=== PATIENT | female | born 1960 | race Caucasian/White ===

== ENCOUNTER 2021-12-30 12:55 | Observation (INO) | payer SELFPAY ==
[2021-12-30] VITALS (7 sets, daily range): BP systolic 125–153; BP diastolic 75–98; PULSE 67–83; RESP 12–18; TEMP 36.1–36.8; O2SAT 95–100; BMI 31.1
--- NOTE | 2021-12-30 13:23 | XRR_ITS ---
PROCEDURE INFORMATION: Exam: XR Chest Exam date and time: 12/30/2021 1:50 PM Age: 61 years old Clinical indication: Pain; Chest pressure; Additional info: Chest pain TECHNIQUE: Imaging protocol: XR of the chest. Views: 1 view. COMPARISON: No relevant prior studies available. FINDINGS: Lungs: Unremarkable. No consolidation. Pleural spaces: Unremarkable. No pleural effusion. No pneumothorax. Heart/Mediastinum: Unremarkable. No cardiomegaly. Bones/joints: Unremarkable. XR/XR chest 1V portable [id number] IMPRESSION: No acute findings.
--- NOTE | 2021-12-30 13:24 | ECG_ITS ---
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 Measurements Intervals [place] Rate: 72 P: 40 TN: 164 QRS: -8 QRSD: 91 T: 45 QT: 387 QTc: 425 Interpretive Statements SINUS RHYTHM No previous ECG available for comparison Electronically Signed On 12-30-2021 14:59:48 CDT by Estela Mcnulty M.D. [email or web address]
--- NOTE | 2021-12-30 13:33 | CTR_ITS ---
PROCEDURE INFORMATION: Exam: CT Angiography Head With Contrast, Arteriography Exam date and time: 12/30/2021 2:45 PM Age: 61 years old Clinical indication: Dizziness and giddiness; Additional info: Vertigo TECHNIQUE: Imaging protocol: Computed tomography angiography of the head with contrast. Exam focused on the arteries. 3D rendering (Not supervised by radiologist): MIP and/or 3D reconstructed images were created by the technologist. Radiation optimization: All CT scans at this facility use at least one of these dose optimization techniques: automated exposure control; mA and/or kV adjustment per patient size (includes targeted exams where dose is matched to clinical indication); or iterative reconstruction. Contrast material: OMNI 350; Contrast volume: 95 ml; Contrast route: INTRAVENOUS (IV); COMPARISON: 1. CT head wo con* [id number] 12/30/2021 2:43 PM 2. CR (CHEST, ) 12/30/2021 1:50 PM RADIATION DOSE METRICS: Total DLP (mGy-cm): 1881.22 FINDINGS: ANTERIOR CIRCULATION: Right internal carotid artery: Unremarkable. Intracranial segment is patent with no significant stenosis. No aneurysm. Right middle cerebral artery: Unremarkable. No occlusion or significant stenosis. No aneurysm. Right anterior cerebral artery: Unremarkable. No occlusion or significant stenosis. No aneurysm. Left internal carotid artery: Unremarkable. Intracranial segment is patent with no significant stenosis. No aneurysm. Left middle cerebral artery: Unremarkable. No occlusion or significant stenosis. No aneurysm. Left anterior cerebral artery: Unremarkable. No occlusion or significant stenosis. No aneurysm. POSTERIOR CIRCULATION: Right vertebral artery: Unremarkable. No occlusion or significant stenosis. No aneurysm. Left vertebral artery: Unremarkable. No occlusion or significant stenosis. No aneurysm. Basilar artery: Unremarkable. No occlusion or significant stenosis. No aneurysm. Right posterior cerebral artery: Unremarkable. No occlusion or significant stenosis. No aneurysm. Left posterior cerebral artery: Unremarkable. No occlusion or significant stenosis. No aneurysm. Brain: No definite mass, mass effect, or midline shift. Cerebral ventricles: No ventriculomegaly. Bones/joints: Unremarkable. No acute fracture. Soft tissues: Unremarkable. PROCEDURE INFORMATION: Exam: CT Angiography Neck With Contrast Exam date and time: 12/30/2021 2:45 PM Age: 61 years old Clinical indication: Dizziness and giddiness; Additional info: Vertigo TECHNIQUE: Imaging protocol: Computed tomography angiography of the neck with contrast. 3D rendering (Not supervised by radiologist): MIP and/or 3D reconstructed images were created by the technologist. Radiation optimization: All CT scans at this facility use at least one of these dose optimization techniques: automated exposure control; mA and/or kV adjustment per patient size (includes targeted exams where dose is matched to clinical indication); or iterative reconstruction. Contrast material: OMNI 350; Contrast volume: 95 ml; Contrast route: INTRAVENOUS (IV); COMPARISON: 1. CT head wo con* [id number] 12/30/2021 2:43 PM 2. CR (CHEST, ) 12/30/2021 1:50 PM RADIATION DOSE METRICS: Total DLP (mGy-cm): 1881.22 FINDINGS: Right common carotid artery: No stenosis. No dissection or occlusion. Right internal carotid artery: No stenosis of the extracranial segment. No dissection or occlusion. Right external carotid artery: No occlusion or stenosis of the origin. Left common carotid artery: No stenosis. No dissection or occlusion. Left internal carotid artery: No stenosis of the extracranial segment. No dissection or occlusion. Left external carotid artery: No occlusion or stenosis of the origin. Right vertebral artery: No stenosis. No dissection or occlusion. Left vertebral artery: No stenosis. No dissection or occlusion. Soft tissues: Normal. No significant soft tissue swelling. Bones/joints: No acute fracture. CT/CT angio headneck* [id number] IMPRESSION: No large vessel stenosis or occlusion. IMPRESSION: No stenosis or occlusion. REFERENCES: NASCET CRITERIA. The degree of internal carotid artery stenosis is based on NASCET criteria. Normal is no stenosis. Mild is less than 50% stenosis. Moderate is 50-69% stenosis. Severe is 70% to 99% stenosis. Total occlusion is no detectable patent lumen.
--- NOTE | 2021-12-30 13:33 | CTR_ITS ---
PROCEDURE INFORMATION: Exam: CT Head Without Contrast Exam date and time: 12/30/2021 2:43 PM Age: 61 years old Clinical indication: Dizziness; Additional info: Vertigo TECHNIQUE: Imaging protocol: Computed tomography of the head without contrast. Radiation optimization: All CT scans at this facility use at least one of these dose optimization techniques: automated exposure control; mA and/or kV adjustment per patient size (includes targeted exams where dose is matched to clinical indication); or iterative reconstruction. COMPARISON: No relevant prior studies available. RADIATION DOSE METRICS: Total DLP (mGy-cm): 831.39 FINDINGS: Brain: Normal. No hemorrhage. Unremarkable white matter. No mass effect. Cerebral ventricles: No ventriculomegaly. Paranasal sinuses: Visualized sinuses are unremarkable. No fluid levels. Mastoid air cells: Visualized mastoid air cells are well aerated. Bones/joints: Unremarkable. No acute fracture. Soft tissues: Unremarkable. CT/CT head wo con* [id number] IMPRESSION: No acute intracranial abnormality.
--- NOTE | 2021-12-30 13:35 | W.ED.GENADLT ---
HPI - General Adult General: Chief complaint: Dizziness Stated complaint: dizziness/nausea/pain in left side of back Time Seen by Provider: 12/30/21 13:20 History of Present Illness: Patient is a 61-year-old female with a history of hypertension, hyperlipidemia who presents emergency room with new onset of vertigo since 5 AM this morning with 2 episodes of chest pain. Patient tells me that she woke up around 5 AM this morning has had since then has been having significant vertigo with nausea and vomiting. Patient denies any prior history of vertigo before. Patient denies any fever or chills, ear pain, tinnitus, or ear drainage. Patient denies any focal neurological weakness with the episodes of vertigo. Patient says that she still has persistent persistent vertigo that is worse with positional changes. Patient also reports 2 episodes of chest pain radiating from right to the left. Each episode of chest pain last for 5 minutes and is burning sensation that is present whenever she is vomiting. He denies any chest pain outside of vomiting earlier today. Patient denies any exertional chest pain, pleuritic chest pain, sharp chest pain with radiation to the back. Patient denies any lower extremity swelling. Denies any pressure-like chest pain. Onset: 5am Duration:ongoing Location:home Severity:severe Associated symptoms: Reports nausea and vomiting; Deny chest pain, dyspnea, rash or palpitations Review of Systems Const: Denies: fever(s) or chills Eyes: Denies: change in vision ENMT: Denies: mouth pain Card: Denies: chest pain or palpitations Resp: Denies: dyspnea or non-productive cough GI: Reports: nausea and vomiting; Denies: abdominal pain or diarrhea : Denies: dysuria Musc: Denies: extremity pain Skin/Breast: Denies: rash or new lesions Neuro: Reports: other (+vertigo); Denies: weakness in extremities Psych: Reports: other (Normal mood) Benedict/Lymph: Denies: easy bruising PFSH ED PFSH: Medical History Hyperlipidemia Hypertension Surgical History S/P bunionectomy Family History Father CAD (coronary artery disease) Brother CAD (coronary artery disease) Mother Stroke Social History Smoking and tobacco status: never smoked Alcohol intake: never Substance/Drug Use: never Household members: spouse Marital status: Current occupational status: employed Physical Exam Const: COMMON NORMALS: alert HENMT: COMMON NORMALS: atraumatic HEAD & SCALP: atraumatic MOUTH: moist mucous membranes not abnormal Eye: COMMON NORMALS: EOMs intact bilaterally and conjunctivae normal CONJUNCTIVA: Yes conjunctivae normal Neck/C-Spine: COMMON NORMALS: full ROM and supple Resp: COMMON NORMALS: normal respiratory effort and clear to auscultation bilaterally AUSCULTATION: clear to auscultation bilaterally Cardio: COMMON NORMALS: regular rate RATE: regular rate GI: COMMON NORMALS: Soft to palpation and non-tender PALPATION: Yes Soft to palpation Extremity: COMMON NORMALS: full ROM Neuro: SENSORIUM/ORIENTATION: Yes alert MOTOR EXAM: No Abnormal motor strength present and Other motor observations present (no focal motor deficits) OTHER: Mental status? Awake, alert, and oriented to self, year, month, location, and situation.? Following simple axial and appendicular commands.? Has appropriate fund of knowledge, comprehension, and insight.? Able to recall and understands pertinent aspects of medical history and current treatment status.? ? Language? Speech is fluent without word-finding difficulties.? 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 ? Cranial nerves? 2,3,4,6: PERRL, EOMI with no nystagmus. 5: Intact sensation to light touch, symmetric? 7: Smile symmetrical, no facial droop.? 8: Hearing grossly intact.? 9,10: Normal palate movement.? 11: Normal strength in trapezius bilaterally 12: Tongue protrudes midline.? ? Motor examination? Normal bulk & tone. Strength as follows (R/L): Delts (5/5), Biceps (5/5), Triceps (5/5), Wrist ext (5/5), hip flexors (5/5), plantarflexors (5/5), dorsiflexors (5/5). ? Sensation? Light Touch: Grossly intact and equal in upper and lower extremities bilaterally? Romberg: Negative.? Distal joint position sense intact ? Coordination? Zsauip-uw-mwgy-finger movements intact without dysmetria or past-pointing.? Rapid fingertaps: preserved amplitude without decriment.? No tremor, myoclonus or truncal ataxia.? ? Gait/stance? Steady, normal narrow base gait with appropriate arm swing and turning.? Tandem gait without hesitation or loss of balance. Psych: COMMON NORMALS: speech normal SPEECH: Yes normal speech MOOD & AFFECT: Yes euthymic mood Course Vital Signs: Vital signs: Vital Signs Temperature 98.2 F 12/31/21 12:00 Pulse Rate 71 12/31/21 12:00 Respiratory Rate 18 12/31/21 12:00 Blood Pressure 118/74 12/31/21 12:00 Pulse Oximetry 97 12/31/21 12:00 MDM - General Adult Medical Decision Making 61-year-old female with history of hypertension hyperlipidemia presenting to the emergency room with sudden onset vertigo sensation since 5 AM this morning. Neuro exam is intact other than gait instability and inability to perform Romberg. Patient has intact satvyi-mv-qfwm bilaterally. No focal weakness or sensation changes. CT brain/ CTA head/neck negative for any acute findings. Patient received IVF and meclizine without since the significant improvement in symptoms. Performed a [place]-Hallpike and Jyoti maneuver bilaterally without improvement in symptoms. Patient will be admitted to hospital for MRI for evaluation of possible cerebellar pathologies, gait instability, and further medical management. Disposition: admission Lab Data : 12/30/21 13:37 12/31/21 05:04 Radiology Impressions Chest X-Ray 12/30/21 13:23 IMPRESSION: No acute findings. Head CT 12/30/21 13:33 IMPRESSION: No acute intracranial abnormality. Head/Neck CTA 12/30/21 13:33 IMPRESSION: No large vessel stenosis or occlusion. IMPRESSION: No stenosis or occlusion. REFERENCES: NASCET CRITERIA. The degree of internal carotid artery stenosis is based on NASCET criteria. Normal is no stenosis. Mild is less than 50% stenosis. Moderate is 50-69% stenosis. Severe is 70% to 99% stenosis. Total occlusion is no detectable patent lumen. Laboratory Results WBC 5.5 10^3/uL (4.0-10.0) 12/30/21 13:37 RBC 5.06 10^6/uL (4.1-5.3) 12/30/21 13:37 Hgb 15.6 g/dL (11.5-15.3) H 12/30/21 13:37 Hct 45.0 % (37.0-47.0) 12/30/21 13:37 MCV 88.9 fl (81-99) 12/30/21 13:37 MCH 30.8 pg (28.0-34.0) 12/30/21 13:37 MCHC 34.7 g/dL (30.0-36.0) 12/30/21 13:37 RDW 12.3 % (12.1-15.1) 12/30/21 13:37 Plt Count 179 10^3/cmm (130-400) 12/30/21 13:37 MPV 12.0 fL (7.4-10.4) H 12/30/21 13:37 Neut % (Auto) 71.6 % 12/30/21 13:37 Lymph % (Auto) 18.1 % 12/30/21 13:37 [place] % (Auto) 7.9 % 12/30/21 13:37 Eos % (Auto) 1.5 % 12/30/21 13:37 Baso % (Auto) 0.7 % 12/30/21 13:37 Neut # (Auto) 3.92 10^3/uL (1.8-7.7) 12/30/21 13:37 Lymph # (Auto) 1.0 10^3/uL (0.8-4.8) 12/30/21 13:37 [place] # (Auto) 0.4 10^3/uL (0.2-0.9) 12/30/21 13:37 Eos # (Auto) 0.1 10^3/uL (0.0-0.8) 12/30/21 13:37 Baso # (Auto) 0.0 10^3/uL (0.0-0.1) 12/30/21 13:37 Nucleated RBC % (auto) 0 % 12/30/21 13:37 Nucleated RBCs # 0.0 /100WBC 12/30/21 13:37 Sodium 137 mmol/L (136-145) 12/30/21 13:37 Potassium 4.3 mmol/L (3.5-5.1) 12/30/21 13:37 Chloride 102 mmol/L (98-107) 12/30/21 13:37 Carbon Dioxide 23 mmol/L (22-29) 12/30/21 13:37 Anion Gap 16.3 (5-19) 12/30/21 13:37 BUN 16 mg/dL (8-23) 12/30/21 13:37 Creatinine 0.7 mg/dL (0.5-0.9) 12/30/21 13:37 GFR Calculation 85.1 mL/min (90-130) L 12/30/21 13:37 Glucose 123 mg/dL (65-115) H 12/30/21 13:37 Calculated Osmolality 287 mOsm/kg (285-295) 12/30/21 13:37 Calcium 9.8 mg/dL (8.5-10.5) 12/30/21 13:37 Total Bilirubin 0.8 mg/dL (0.15-1.2) 12/30/21 13:37 AST 22 U/L (0-32) 12/30/21 13:37 ALT 19 U/L (0-33) 12/30/21 13:37 Alkaline Phosphatase 74 IU/L (35-105) 12/30/21 13:37 Troponin T Baseline 6 ng/L (0-10) 12/30/21 13:37 Troponin T 120 Minute 6.00 ng/L (0-10) 12/30/21 15:30 Delta Troponin T 0 ABS# (0-10) 12/30/21 15:30 Total Protein 8.1 g/dL (6.6-8.7) 12/30/21 13:37 Albumin 4.7 g/dL (3.5-5.2) 12/30/21 13:37 Globulin 3.4 g/dL (1.3-4.6) 12/30/21 13:37 Lipase 136 U/L (13-60) H 12/30/21 13:37 Imaging Data Other Imaging: Radiologist's impression: Launch?Image [address] [address] XRay Report Signed Patient: Ellie Knox Unit #: [id number] : 1960 Age/Sex: 61 / F ADM Date: 12/30/21 Loc: ER Room/Bed: Attending Dr: Ordering Provider/Ordering MD: Linden Mar MD Date of Service: 12/30/21 Procedure(s): XR chest 1V portable [id number] Accession Number(s): [id number] Report Number: [id number] PROCEDURE INFORMATION: Exam: XR Chest Exam date and time: 12/30/2021 1:50 PM Age: 61 years old Clinical indication: Pain; Chest pressure; Additional info: Chest pain TECHNIQUE: Imaging protocol: XR of the chest. Views: 1 view. COMPARISON: No relevant prior studies available. FINDINGS: Lungs: Unremarkable. No consolidation. Pleural spaces: Unremarkable. No pleural effusion. No pneumothorax. Heart/Mediastinum: Unremarkable. No cardiomegaly. Bones/joints: Unremarkable. XR/XR chest 1V portable [id number] IMPRESSION: No acute findings. ? Dictated By: Cesar Ash DO Signed By: Cesar Ash DO Signed Date/Time: 12/30/21 1448 DD/ [id number] [place] [address] CT Scan Report Signed Patient: Ellie Knox Unit #: [id number] : 1960 Age/Sex: 61 / F ADM Date: 12/30/21 Loc: ER Room/Bed: Attending Dr: Ordering Provider/Ordering MD: Linden Mar MD Date of Service: 12/30/21 Procedure(s): CT angio headneck* [id number] Accession Number(s): [id number] Report Number: [id number] PROCEDURE INFORMATION: Exam: CT Angiography Head With Contrast, Arteriography Exam date and time: 12/30/2021 2:45 PM Age: 61 years old Clinical indication: Dizziness and giddiness; Additional info: Vertigo TECHNIQUE: Imaging protocol: Computed tomography angiography of the head with contrast. Exam focused on the arteries. 3D rendering (Not supervised by radiologist): MIP and/or 3D reconstructed images were created by the technologist. Radiation optimization: All CT scans at this facility use at least one of these dose optimization techniques: automated exposure control; mA and/or kV adjustment per patient size (includes targeted exams where dose is matched to clinical indication); or iterative reconstruction. Contrast material: OMNI 350; Contrast volume: 95 ml; Contrast route: INTRAVENOUS (IV);? COMPARISON: 1. CT head wo con* [id number] 12/30/2021 2:43 PM 2. CR (CHEST, ) 12/30/2021 1:50 PM RADIATION DOSE METRICS: Total DLP (mGy-cm): 1881.22 FINDINGS: ANTERIOR CIRCULATION: Right internal carotid artery: Unremarkable. Intracranial segment is patent with no significant stenosis. No aneurysm. Right middle cerebral artery: Unremarkable. No occlusion or significant stenosis. No aneurysm.? Right anterior cerebral artery: Unremarkable. No occlusion or significant stenosis. No aneurysm.? Left internal carotid artery: Unremarkable. Intracranial segment is patent with no significant stenosis. No aneurysm. Left middle cerebral artery: Unremarkable. No occlusion or significant stenosis. No aneurysm.? Left anterior cerebral artery: Unremarkable. No occlusion or significant stenosis. No aneurysm.? POSTERIOR CIRCULATION: Right vertebral artery: Unremarkable. No occlusion or significant stenosis. No aneurysm.? Left vertebral artery: Unremarkable. No occlusion or significant stenosis. No aneurysm.? Basilar artery: Unremarkable. No occlusion or significant stenosis. No aneurysm. Right posterior cerebral artery: Unremarkable. No occlusion or significant stenosis. No aneurysm.? Left posterior cerebral artery: Unremarkable. No occlusion or significant stenosis. No aneurysm.? Brain: No definite mass, mass effect, or midline shift. Cerebral ventricles: No ventriculomegaly. Bones/joints: Unremarkable. No acute fracture. Soft tissues: Unremarkable. PROCEDURE INFORMATION: Exam: CT Angiography Neck With Contrast Exam date and time: 12/30/2021 2:45 PM Age: 61 years old Clinical indication: Dizziness and giddiness; Additional info: Vertigo TECHNIQUE: Imaging protocol: Computed tomography angiography of the neck with contrast. 3D rendering (Not supervised by radiologist): MIP and/or 3D reconstructed images were created by the technologist. Radiation optimization: All CT scans at this facility use at least one of these dose optimization techniques: automated exposure control; mA and/or kV adjustment per patient size (includes targeted exams where dose is matched to clinical indication); or iterative reconstruction. Contrast material: OMNI 350; Contrast volume: 95 ml; Contrast route: INTRAVENOUS (IV);? COMPARISON: 1. CT head wo con* [id number] 12/30/2021 2:43 PM 2. CR (CHEST, ) 12/30/2021 1:50 PM RADIATION DOSE METRICS: Total DLP (mGy-cm): 1881.22 FINDINGS: Right common carotid artery: No stenosis. No dissection or occlusion. Right internal carotid artery: No stenosis of the extracranial segment. No dissection or occlusion. Right external carotid artery: No occlusion or stenosis of the origin.? Left common carotid artery: No stenosis. No dissection or occlusion. Left internal carotid artery: No stenosis of the extracranial segment. No dissection or occlusion. Left external carotid artery: No occlusion or stenosis of the origin.? Right vertebral artery: No stenosis. No dissection or occlusion. Left vertebral artery: No stenosis. No dissection or occlusion. Soft tissues: Normal. No significant soft tissue swelling. Bones/joints: No acute fracture. CT/CT angio headneck* [id number] IMPRESSION: No large vessel stenosis or occlusion. ? ? IMPRESSION: No stenosis or occlusion. ? REFERENCES: NASCET CRITERIA. The degree of internal carotid artery stenosis is based on NASCET criteria. Normal is no stenosis. Mild is less than 50% stenosis. Moderate is 50-69% stenosis. Severe is 70% to 99% stenosis. Total occlusion is no detectable patent lumen. ? Dictated By: Cesar Ash DO Signed By: Cesar Ash DO Signed Date/Time: 12/30/21 1507 DD/ [id number] [place] [address] CT Scan Report Signed Patient: Ellie Knox Unit #: [id number] : 1960 Age/Sex: 61 / F ADM Date: 12/30/21 Loc: ER Room/Bed: Attending Dr: Ordering Provider/Ordering MD: Linden Mar MD Date of Service: 12/30/21 Procedure(s): CT angio headneck* [id number] Accession Number(s): [id number] Report Number: [id number] PROCEDURE INFORMATION: Exam: CT Angiography Head With Contrast, Arteriography Exam date and time: 12/30/2021 2:45 PM Age: 61 years old Clinical indication: Dizziness and giddiness; Additional info: Vertigo TECHNIQUE: Imaging protocol: Computed tomography angiography of the head with contrast. Exam focused on the arteries. 3D rendering (Not supervised by radiologist): MIP and/or 3D reconstructed images were created by the technologist. Radiation optimization: All CT scans at this facility use at least one of these dose optimization techniques: automated exposure control; mA and/or kV adjustment per patient size (includes targeted exams where dose is matched to clinical indication); or iterative reconstruction. Contrast material: OMNI 350; Contrast volume: 95 ml; Contrast route: INTRAVENOUS (IV);? COMPARISON: 1. CT head wo con* [id number] 12/30/2021 2:43 PM 2. CR (CHEST, ) 12/30/2021 1:50 PM RADIATION DOSE METRICS: Total DLP (mGy-cm): 1881.22 FINDINGS: ANTERIOR CIRCULATION: Right internal carotid artery: Unremarkable. Intracranial segment is patent with no significant stenosis. No aneurysm. Right middle cerebral artery: Unremarkable. No occlusion or significant stenosis. No aneurysm.? Right anterior cerebral artery: Unremarkable. No occlusion or significant stenosis. No aneurysm.? Left internal carotid artery: Unremarkable. Intracranial segment is patent with no significant stenosis. No aneurysm. Left middle cerebral artery: Unremarkable. No occlusion or significant stenosis. No aneurysm.? Left anterior cerebral artery: Unremarkable. No occlusion or significant stenosis. No aneurysm.? POSTERIOR CIRCULATION: Right vertebral artery: Unremarkable. No occlusion or significant stenosis. No aneurysm.? Left vertebral artery: Unremarkable. No occlusion or significant stenosis. No aneurysm.? Basilar artery: Unremarkable. No occlusion or significant stenosis. No aneurysm. Right posterior cerebral artery: Unremarkable. No occlusion or significant stenosis. No aneurysm.? Left posterior cerebral artery: Unremarkable. No occlusion or significant stenosis. No aneurysm.? Brain: No definite mass, mass effect, or midline shift. Cerebral ventricles: No ventriculomegaly. Bones/joints: Unremarkable. No acute fracture. Soft tissues: Unremarkable. PROCEDURE INFORMATION: Exam: CT Angiography Neck With Contrast Exam date and time: 12/30/2021 2:45 PM Age: 61 years old Clinical indication: Dizziness and giddiness; Additional info: Vertigo TECHNIQUE: Imaging protocol: Computed tomography angiography of the neck with contrast. 3D rendering (Not supervised by radiologist): MIP and/or 3D reconstructed images were created by the technologist. Radiation optimization: All CT scans at this facility use at least one of these dose optimization techniques: automated exposure control; mA and/or kV adjustment per patient size (includes targeted exams where dose is matched to clinical indication); or iterative reconstruction. Contrast material: OMNI 350; Contrast volume: 95 ml; Contrast route: INTRAVENOUS (IV);? COMPARISON: 1. CT head wo con* [id number] 12/30/2021 2:43 PM 2. CR (CHEST, ) 12/30/2021 1:50 PM RADIATION DOSE METRICS: Total DLP (mGy-cm): 1881.22 FINDINGS: Right common carotid artery: No stenosis. No dissection or occlusion. Right internal carotid artery: No stenosis of the extracranial segment. No dissection or occlusion. Right external carotid artery: No occlusion or stenosis of the origin.? Left common carotid artery: No stenosis. No dissection or occlusion. Left internal carotid artery: No stenosis of the extracranial segment. No dissection or occlusion. Left external carotid artery: No occlusion or stenosis of the origin.? Right vertebral artery: No stenosis. No dissection or occlusion. Left vertebral artery: No stenosis. No dissection or occlusion. Soft tissues: Normal. No significant soft tissue swelling. Bones/joints: No acute fracture. CT/CT angio headneck* [id number] IMPRESSION: No large vessel stenosis or occlusion. ? ? IMPRESSION: No stenosis or occlusion. ? REFERENCES: NASCET CRITERIA. The degree of internal carotid artery stenosis is based on NASCET criteria. Normal is no stenosis. Mild is less than 50% stenosis. Moderate is 50-69% stenosis. Severe is 70% to 99% stenosis. Total occlusion is no detectable patent lumen. ? Dictated By: Cesar Ash DO Signed By: Cesar Ash DO Signed Date/Time: 12/30/21 1507 DD/ [address] [address] [address] Scan Report Signed Patient: Ellie Knox Unit #: [id number] : 1960 Age/Sex: 61 / F ADM Date: 12/30/21 Loc: ER Room/Bed: Attending Dr: Ordering Provider/Ordering MD: Linden Mar MD Date of Service: 12/30/21 Procedure(s): CT head wo con* [id number] Accession Number(s): [id number] Report Number: [id number] PROCEDURE INFORMATION: Exam: CT Head Without Contrast Exam date and time: 12/30/2021 2:43 PM Age: 61 years old Clinical indication: Dizziness; Additional info: Vertigo TECHNIQUE: Imaging protocol: Computed tomography of the head without contrast. Radiation optimization: All CT scans at this facility use at least one of these dose optimization techniques: automated exposure control; mA and/or kV adjustment per patient size (includes targeted exams where dose is matched to clinical indication); or iterative reconstruction. COMPARISON: No relevant prior studies available. RADIATION DOSE METRICS: Total DLP (mGy-cm): 831.39 FINDINGS: Brain: Normal. No hemorrhage. Unremarkable white matter. No mass effect. Cerebral ventricles: No ventriculomegaly. Paranasal sinuses: Visualized sinuses are unremarkable. No fluid levels. Mastoid air cells: Visualized mastoid air cells are well aerated. Bones/joints: Unremarkable. No acute fracture. Soft tissues: Unremarkable. CT/CT head wo con* [id number] IMPRESSION: No acute intracranial abnormality. ? Dictated By: Cesar Ash DO Signed By: Cesar Ash DO Signed Date/Time: 12/30/21 1516 DD/ 1443 Discharge Plan Discharge Patient Disposition: Admitted As Inpatient Admit Provider: Parag Archer Clinical Impression: Vertigo, Unstable gait Condition: Stable Discharge Diet: Cardiac Discharge Activity: Increase activity as tolerated and As per PT/OT instructions Coding Level of Care Code ED [place] for Chg Fwd Exam Comprehensive
[2021-12-30] MEDS: meclizine 25 mg tablet 50 MG PO (13:42)
[2021-12-30] MEDS: sodium chloride 0.9% 1,000 ML 999 ML IV (13:42)
[2021-12-30 13:52] LABS: Basophils % 0.7 %; Eosinophils # 0.1 10^3/uL (0.0-0.8); Eosinophils % 1.5 %; Hemoglobin 15.6 g/dL (11.5-15.3); Lymphocytes % 18.1 %; Mean Corpuscular HGB Conc 34.7 g/dL (30.0-36.0); Mean Corpuscular Hemoglobin 30.8 pg (28.0-34.0); Mean Corpuscular Volume 88.9 fl (81-99); Monocytes # 0.4 10^3/uL (0.2-0.9); Monocytes % 7.9 %; Neutrophils # 3.92 10^3/uL (1.8-7.7); Neutrophils % 71.6 %; Nucleated Red Blood Cells % 0 %; Platelet Count 179 10^3/cmm (130-400); Red Blood Count 5.06 10^6/uL (4.1-5.3); Red Cell Distribution Width 12.3 % (12.1-15.1); White Blood Count 5.5 10^3/uL (4.0-10.0)
[2021-12-30 14:07] LABS: Alanine Aminotransferase 19 U/L (0-33); Albumin Level 4.7 g/dL (3.5-5.2); Alkaline Phosphatase 74 IU/L (35-105); Aspartate Amino Transferase 22 U/L (0-32); Blood Urea Nitrogen 16 mg/dL (8-23); Calcium 9.8 mg/dL (8.5-10.5); Carbon Dioxide 23 mmol/L (22-29); Chloride 102 mmol/L (98-107); Globulin 3.4 g/dL (1.3-4.6); Glomerular Filtration Rate 85.1 mL/min (90-130); Glucose 123 mg/dL (65-115); Lipase 136 U/L (13-60); Osmolality Calculated 287 mOsm/kg (285-295); Sodium 137 mmol/L (136-145); Total Bilirubin 0.8 mg/dL (0.15-1.2); Total Protein 8.1 g/dL (6.6-8.7)
[2021-12-30 14:08] LABS: Troponin(5th) Baseline 6 ng/L (0-10)
[2021-12-30 14:28] LABS: Anion Gap 16.3 (5-19); Potassium 4.3 mmol/L (3.5-5.1)
[2021-12-30] MEDS: iohexol 350 mg/mL 100 mL Btl IV (14:47)
--- NOTE | 2021-12-30 15:24 | ECG_ITS ---
[facility] Test Date: 2021-12-30 Pat Name: Ellie Knox Department: Room: Gender: Female Director Payer: : 1960 Requested By: Linden Mar Order Number: [id number] Andrea MD: Estela Mcnulty M.D. Measurements Intervals [place] Rate: 67 P: 43 MO: 172 QRS: 6 QRSD: 94 T: 48 QT: 413 QTc: 439 Interpretive Statements SINUS RHYTHM Compared to ECG 12/30/2021 13:35:54 No significant changes Electronically Signed On 12-31-2021 16:23:42 CDT by Estela Mcnulty M.D. [id number]
[2021-12-30] MEDS: LORazepam 2 mg/mL INJ 1 mL IVP (16:13)
[2021-12-30 16:23] LABS: Troponin 5 2HR Delta 0 ABS# (0-10)
--- NOTE | 2021-12-30 17:29 | PM.HP ---
Providers/Chief Complaint Admitting Physician: Parag Archer Chief Complaint: dizziness/nausea/pain in left side of back History of Present Illness Pleasant 61-year-old lady with history of HTN, HLD, family history of cardiovascular disease presents to ER for evaluation after experiencing episodes of vertigo since 530 this morning, with unsteady gait, nausea, vomiting. She has vomited multiple times, with last few times having chest pain/discomfort with the vomiting. She denies other focal neurologic deficits. She has never had symptoms like this before. Luis-Hallpike was attempted in ER, although was equivocal. Jyoti attempted, but without resolution of symptoms, she is unable to get up to ambulate due to vertigo. CT head and CTA head and neck obtained in ER are unremarkable. Review of Systems Const: Denies: fever(s), chills, body aches or malaise Eyes: Denies: change in vision, eye discomfort or eye redness ENMT: Denies: throat pain, oral sores or ear or mastoid pain Card: Denies: chest pain, edema, pre-syncope or dyspnea on exertion Resp: Denies: dyspnea, productive cough, change in phlegm color or hemoptysis GI: Reports: nausea and vomiting; Denies: abdominal pain, diarrhea, constipation, hematochezia or melena : Denies: flank pain, urinary frequency or hematuria Musc: Denies: back pain, joint swelling or joint redness Skin/Breast: Denies: rash or new lesions Neuro: Reports: difficulty walking, frequent falls and vertigo; Denies: headache(s), numbness in extremities, weakness in extremities, confusion or seizure-like activity Endo: Denies: polyuria or polydipsia Benedict/Lymph: Denies: easy bleeding or tender lymph nodes All/Imm: Denies: urticaria or tongue swelling Medications/Allergies Home Medications Medication Instructions Recorded Confirmed Last Taken Type No Known Home Medications 12/30/21 12/30/21 Unknown History Allergies Allergy/AdvReac Type Severity Reaction Status Date / Time prochlorperazine Allergy Unknown Verified 12/30/21 13:10 [From Compazine] PFSH Acute PFSH: Medical History Hyperlipidemia Hypertension Surgical History S/P bunionectomy Family History Father CAD (coronary artery disease) Brother CAD (coronary artery disease) Mother Stroke Social History Smoking and tobacco status: never smoked Alcohol intake: never Substance/Drug Use: never Household members: spouse Marital status: Current occupational status: employed Vitals/I&O/Wt Last Vital Signs Temp 97.0 F L 12/30/21 13:06 Pulse 74 12/30/21 16:37 Resp 12 12/30/21 16:37 BP 147/97 12/30/21 16:37 Pulse Ox 98 12/30/21 16:37 Weight last 48 hrs Weight 77.111 kg Physical Exam Const: COMMON NORMALS: alert GENERAL APPEARANCE: cooperative ORIENTATION/CONSCIOUSNESS: Yes awake HENMT: COMMON NORMALS: normocephalic, EAC's normal, Normal external nose present and moist oral mucous membranes HEAD & SCALP: normocephalic NOSE: Normal external nose present EXTERNAL AUDITORY CANAL: EAC's normal Neck/C-Spine: COMMON NORMALS: no meningeal signs Chest: CHEST: Yes Symmetrical chest wall rise Resp: COMMON NORMALS: clear to auscultation bilaterally AUSCULTATION: clear to auscultation bilaterally Cardio: COMMON NORMALS: regular rate, regular rhythm and No murmurs present (Cardio) RATE: regular rate RHYTHM: regular rhythm GI: COMMON NORMALS: Normal to inspection, nondistended, normoactive bowel sounds present, Soft to palpation and non-tender PALPATION: Yes Soft to palpation Extremity: COMMON NORMALS: no pedal edema Neuro: COMMON NORMALS: moves all extremities SENSORIUM/ORIENTATION: Yes alert MENINGEAL SIGNS: Yes no meningeal signs COORDINATION/BALANCE: [id number]-al-yiun test normal and xcxb-jp-qzpy test normal SPEECH: speech normal SENSORY EXAM: Yes extremities (Symmetrical) and Normal double simultaneous stimulation for sensation MOTOR EXAM: 5/5 motor strength present throughout, Pronator motor function not present and no tremor noted OTHER: She is awake and alert, following directions. No trouble tracking. No vertigo at extremes. Visual elliott full to confrontation. Psych: COMMON NORMALS: mental status grossly normal Skin: COMMON NORMALS: no wounds RASHES: no rashes Data : 12/30/21 13:37 12/30/21 13:37 A&P Assessment and plan (1) Vertigo: Persistent/recurrent vertigo, gait instability, nausea, vomiting. Reported history of HTN, HLD, she also reports history of cardiovascular disease in the family. CT of the head, CT angiogram head and neck unremarkable. She is having persistent symptoms. Will request MRI to rule out posterior circulation CVA. She would be outside window for TPA, no indication for other intervention, however, would want to know central cause in case of posterior stroke CVA for additional monitoring, monitoring blood pressure, as well as secondary prevention. We discussed this with her. Jyoti reportedly was attempted in ER, unsuccessfully. PT assessment. Meclizine as needed, Zofran as needed. Discussed with her differential diagnosis, as well as wanting to rule out central vertigo, versus peripheral vertigo, possibly BPPV, less likely labyrinthitis as does not have other associated symptoms. She is agreeable with plan. Status: Acute (2) Unstable gait: Status: Acute Plan HTN HLD Attestations Medical Necessity Statement*: Place in observation for additional assessment of persistent vertigo, gait instability, assessment for possible central cause. Coding Level of Care Code Acute Fine Arts Packer for Shruthi Castrejon Diagnoses Vertigo R42 Unstable gait R26.81
--- NOTE | 2021-12-30 19:24 | ECG_ITS ---
[facility] Test Date: 2021-12-31 Pat Name: Ellie Knox Department: Room: 278 Gender: Female Landing Scaler: : 1960 Requested By: Linden Mar Order Number: [id number] Andrea MD: Estela Mcnulty M.D. Measurements Intervals Saxe Rate: 71 P: 48 NJ: 160 QRS: 7 QRSD: 98 T: 41 QT: 388 QTc: 422 Interpretive Statements SINUS RHYTHM Compared to ECG 12/30/2021 15:34:42 No significant changes Electronically Signed On 12-31-2021 16:19:22 CDT by Estela Mcnulty M.D. [id number]
[2021-12-30 20:45] LABS: Troponin 5 6HR 6.13 ng/L (0-10)
[2021-12-31] VITALS: BP 139/62; PULSE 66; RESP 16; TEMP 36.6; O2SAT 97
[2021-12-31 04:00] VITALS: BP 118/77; PULSE 66; RESP 16; TEMP 36.8; O2SAT 99
[2021-12-31 05:54] LABS: Alanine Aminotransferase 14 U/L (0-33); Alkaline Phosphatase 61 IU/L (35-105); Anion Gap 14.2 (5-19); Aspartate Amino Transferase 17 U/L (0-32); Blood Urea Nitrogen 12 mg/dL (8-23); Calcium 9.3 mg/dL (8.5-10.5); Carbon Dioxide 22 mmol/L (22-29); Chloride 107 mmol/L (98-107); Globulin 2.7 g/dL (1.3-4.6); Glomerular Filtration Rate 85.1 mL/min (90-130); Glucose 104 mg/dL (65-115); Osmolality Calculated 288 mOsm/kg (285-295); Potassium 4.2 mmol/L (3.5-5.1); Sodium 139 mmol/L (136-145); Total Bilirubin 0.7 mg/dL (0.15-1.2); Total Protein 6.7 g/dL (6.6-8.7)
[2021-12-31 07:08] VITALS: BP 121/78; PULSE 70; RESP 18; TEMP 36.9; O2SAT 93
[2021-12-31 12:00] VITALS: BP 118/74; PULSE 71; RESP 18; TEMP 36.8; O2SAT 97
--- NOTE | 2021-12-31 12:42 | PM.DCS ---
Discharge Providers Date of Admission: 12/30/21 18:47 Date of Discharge: December 31, 2021 Attending Provider at Admission: Parag Archer Attending Provider at Discharge: Parag Archer Diagnoses at Discharge Discharge Diagnosis (1) Vertigo: Status: Acute (2) Unstable gait: Status: Acute Reason for Visit Reason for Visit: dizziness/nausea/pain in left side of back Hospital Course Hospital Course Pleasant 61-year-old lady with history of hypertension, hyperlipidemia was placed in observation for additional management after presenting with nonresolving/recurrent vertigo since 5:30 in the morning with gait instability, recurrent vomiting, with fever episodes with chest discomfort when vomiting. She denies any fever or chills URI, otalgia, or other infection related symptoms. Luis-Hallpike maneuver in ER was equivocal, Jyoti was attempted. Without resolution of symptoms, she was still unable to get up and ambulate. She had also received meclizine, Zofran, Ativan. CT of the head and CTA head and neck were unremarkable. Due to persistent symptoms MRI was requested. She was monitored in the hospital overnight, assessed by PT this morning. Her symptoms today are completely resolved, she has no further vertigo, nausea, vomiting. No other new symptoms. Symptoms could not be triggered with PT. Discussed with her as we cannot reproduce symptoms, we are not entirely clear that she did not have CVA/TIA or posterior circulation which may be dangerous, with risk of recurrence of CVA and potentially disabling or in some cases life-threatening outcomes. She for now prefers not stay for the MRI. She states she will be following up with her primary provider, discussed this further, and states she will certainly seek medical attention in case of recurrence of symptoms or in case of any other strokelike symptoms. She will continue to work with primary provider to optimize her cardiovascular risk factors. Physical Exam Narrative: Sitting up in chair, dressed in street clothes. Const: COMMON NORMALS: alert GENERAL APPEARANCE: cooperative ORIENTATION/CONSCIOUSNESS: Yes awake HENMT: COMMON NORMALS: normocephalic, EAC's normal, Normal external nose present and moist oral mucous membranes HEAD & SCALP: normocephalic NOSE: Normal external nose present EXTERNAL AUDITORY CANAL: EAC's normal Neck/C-Spine: COMMON NORMALS: no meningeal signs Chest: CHEST: Yes Symmetrical chest wall rise Resp: COMMON NORMALS: clear to auscultation bilaterally AUSCULTATION: clear to auscultation bilaterally Cardio: COMMON NORMALS: regular rate, regular rhythm and No murmurs present (Cardio) RATE: regular rate RHYTHM: regular rhythm GI: COMMON NORMALS: Normal to inspection, nondistended, normoactive bowel sounds present, Soft to palpation and non-tender PALPATION: Yes Soft to palpation Extremity: COMMON NORMALS: no pedal edema Neuro: COMMON NORMALS: moves all extremities SENSORIUM/ORIENTATION: Yes alert MENINGEAL SIGNS: Yes no meningeal signs COORDINATION/BALANCE: yqbprv-sj-mmlg test normal and pedi-gg-zkzv test normal SPEECH: speech normal SENSORY EXAM: Yes extremities (Symmetrical) and Normal double simultaneous stimulation for sensation MOTOR EXAM: 5/5 motor strength present throughout, Pronator motor function not present and no tremor noted COORDINATION: akhnfo-ka-cugw test normal and emjv-so-tgxy test normal OTHER: She is awake and alert, following directions. No trouble tracking. No vertigo at extremes. Visual elliott full to confrontation. Psych: COMMON NORMALS: mental status grossly normal Skin: COMMON NORMALS: no wounds RASHES: no rashes Discharge Data Studies Completed and Pending Completed Studies During Hospitalization Category Date Time Status CT head wo con* [id number] Urgent Cat Scan 12/30/21 13:33 Completed CTA head neck [CT angio headneck* [id number]] Urgent Cat Scan 12/30/21 13:33 Completed XR chest 1V portable [id number] Stat Exams 12/30/21 13:23 Completed Pending at discharge Category Date Time Status Basic Metabolic Panel AM LABS Lab 01/01/22 04:00 Ordered Basic Metabolic Panel AM LABS Lab 01/02/22 04:00 Ordered Comprehensive Metabolic Panel AM LABS Lab 01/01/22 04:00 Ordered Comprehensive Metabolic Panel AM LABS Lab 01/02/22 04:00 Ordered MR head wo con* [id number] Urgent MRI 12/30/21 15:43 Ordered MR head wo/w con [id number] Routine MRI 12/30/21 18:47 Stop Req MR head wo/w con [id number] Stat MRI 12/30/21 21:41 Ordered Radiology Impressions Chest X-Ray 12/30/21 13:23 IMPRESSION: No acute findings. Head CT 12/30/21 13:33 IMPRESSION: No acute intracranial abnormality. Head/Neck CTA 12/30/21 13:33 IMPRESSION: No large vessel stenosis or occlusion. IMPRESSION: No stenosis or occlusion. REFERENCES: NASCET CRITERIA. The degree of internal carotid artery stenosis is based on NASCET criteria. Normal is no stenosis. Mild is less than 50% stenosis. Moderate is 50-69% stenosis. Severe is 70% to 99% stenosis. Total occlusion is no detectable patent lumen. Laboratory Results WBC 5.5 10^3/uL (4.0-10.0) 12/30/21 13:37 RBC 5.06 10^6/uL (4.1-5.3) 12/30/21 13:37 Hgb 15.6 g/dL (11.5-15.3) H 12/30/21 13:37 Hct 45.0 % (37.0-47.0) 12/30/21 13:37 MCV 88.9 fl (81-99) 12/30/21 13:37 MCH 30.8 pg (28.0-34.0) 12/30/21 13:37 MCHC 34.7 g/dL (30.0-36.0) 12/30/21 13:37 RDW 12.3 % (12.1-15.1) 12/30/21 13:37 Plt Count 179 10^3/cmm (130-400) 12/30/21 13:37 MPV 12.0 fL (7.4-10.4) H 12/30/21 13:37 Neut % (Auto) 71.6 % 12/30/21 13:37 Lymph % (Auto) 18.1 % 12/30/21 13:37 [place] % (Auto) 7.9 % 12/30/21 13:37 Eos % (Auto) 1.5 % 12/30/21 13:37 Baso % (Auto) 0.7 % 12/30/21 13:37 Neut # (Auto) 3.92 10^3/uL (1.8-7.7) 12/30/21 13:37 Lymph # (Auto) 1.0 10^3/uL (0.8-4.8) 12/30/21 13:37 [place] # (Auto) 0.4 10^3/uL (0.2-0.9) 12/30/21 13:37 Eos # (Auto) 0.1 10^3/uL (0.0-0.8) 12/30/21 13:37 Baso # (Auto) 0.0 10^3/uL (0.0-0.1) 12/30/21 13:37 Nucleated RBC % (auto) 0 % 12/30/21 13:37 Nucleated RBCs # 0.0 /100WBC 12/30/21 13:37 Sodium 139 mmol/L (136-145) 12/31/21 05:04 Potassium 4.2 mmol/L (3.5-5.1) 12/31/21 05:04 Chloride 107 mmol/L (98-107) 12/31/21 05:04 Carbon Dioxide 22 mmol/L (22-29) 12/31/21 05:04 Anion Gap 14.2 (5-19) 12/31/21 05:04 BUN 12 mg/dL (8-23) 12/31/21 05:04 Creatinine 0.7 mg/dL (0.5-0.9) 12/31/21 05:04 GFR Calculation 85.1 mL/min (90-130) L 12/31/21 05:04 Glucose 104 mg/dL (65-115) 12/31/21 05:04 Calculated Osmolality 288 mOsm/kg (285-295) 12/31/21 05:04 Calcium 9.3 mg/dL (8.5-10.5) 12/31/21 05:04 Total Bilirubin 0.7 mg/dL (0.15-1.2) 12/31/21 05:04 AST 17 U/L (0-32) 12/31/21 05:04 ALT 14 U/L (0-33) 12/31/21 05:04 Alkaline Phosphatase 61 IU/L (35-105) 12/31/21 05:04 Troponin T Baseline 6 ng/L (0-10) 12/30/21 13:37 Troponin T 120 Minute 6.00 ng/L (0-10) 12/30/21 15:30 Delta Troponin T 0 ABS# (0-10) 12/30/21 15:30 Troponin T Hi Sens 6Hr 6.13 ng/L (0-10) 12/30/21 20:00 Troponin T Hi Sens 6Hr Delta Not Reportable 12/30/21 20:00 Total Protein 6.7 g/dL (6.6-8.7) 12/31/21 05:04 Albumin 4.0 g/dL (3.5-5.2) 12/31/21 05:04 Globulin 2.7 g/dL (1.3-4.6) 12/31/21 05:04 Lipase 136 U/L (13-60) H 12/30/21 13:37 Vitals Last Vital Signs Temp 98.2 F 12/31/21 12:00 Pulse 71 12/31/21 12:00 Resp 18 12/31/21 12:00 BP 118/74 12/31/21 12:00 Pulse Ox 97 12/31/21 12:00 Discharge Plan Discharge Patient Disposition: Home Condition: Stable Prescriptions: New meclizine 25 mg Tablet 25 mg PO TID PRN (Reason: Dizziness) Qty: 15 0RF ondansetron HCl 4 mg tablet 4 mg PO TID PRN (Reason: nausea and vomiting) 3 Days Qty: 10 0RF No Action No Known Home Medications 0RF Discharge Orders: Discharge Order (Routine); Ordered 12/31/21 Ordered By: Parag Archer Referrals: Primary, provider [Other] - 4-7 days Amanda Grayson MD [Physician] - 4-7 days Discharge Diet: Cardiac Discharge Activity: Increase activity as tolerated and As per PT/OT instructions Patient Instructions: Vertigo (GEN) Activity Restrictions/Additional Instructions: Please follow-up with your primary doctor for removal of vertigo. Follow-up with your primary doctor also resolution of vomiting and chest discomfort with vomiting. Follow-up regarding reduction of cardiovascular risk factors. In case of persistent vertigo, or numbness, weakness, trouble speaking, vision changes, or other symptoms that may be concerning for stroke seek medical attention immediately. Please monitor blood pressure at home at least twice daily, a number of your blood pressure or if you have been increased, in case of persistently or recurrently elevated blood pressures above 120/80, discussed with your primary doctor consideration of initiation of treatment. Discharge Attestations Time Spent in Discharge Care*: greater than 30 min Quality Metrics Clinical Quality Measures [ No reported AMI, CVA or VTE this stay] Coding Level of Care Code Acute Chg FW DC note Diagnoses Vertigo R42 Unstable gait R26.81
== END 2021-12-31 14:01 | disposition home or self-care (01) ==
LOC: ER 13:37 → MEDSURG 18:14
PROVIDERS: Admitting Provider Internal Medicine; Emergency Provider Emergency Medicine; Visit Provider Internal Medicine
DX: R42 Dizziness and giddiness (principal); R26.81 Unsteadiness on feet; I10 Essential (primary) hypertension; E78.5 Hyperlipidemia, unspecified; Z82.49 Family history of ischemic heart disease and other diseases of the circulatory system; Z82.3 Family history of stroke
CPT/HCPCS: 36415; 70450; 70496; 70498; 71045; 80048; 80053; 83690; 84484; 85025; 93005; 96361; 96374; 97161; 99285; G0378; J2060; J7030; J8597; Q9967

== ENCOUNTER 2022-10-18 10:10 | Outpatient (CLI) | payer SELFPAY ==
--- NOTE | 2022-10-18 10:26 | MM_ITS ---
WS: [id number] Bilateral screening 3D tomosynthesis digital mammogram, 10/18/2022 Clinical Data: SCREENING Comparison: None. Findings: The breast parenchymal pattern shows fibroglandular tissue No spiculated masses or clustered calcific ations are seen. There are no secondary signs of carcinoma. There are mole markers on both breasts. MM/[place] [id number] Impression: 1. Negative bilateral mammogram with no prior exam for review. 2. Recommend annual screening mammograms. BIRADS: 1-Negative FOLLOW UP: 1 Year Follow-up The CAD checker bak[employer] products was used.
== END 2022-10-18 10:11 | disposition home or self-care (01) ==
LOC: RAD 10:11
PROVIDERS: PCP Family Medicine; Visit Provider Family Medicine
DX: Z12.31 Encounter for screening mammogram for malignant neoplasm of breast (principal)
CPT/HCPCS: 77063; 77067

== ENCOUNTER 2023-12-04 09:45 | Outpatient (CLI) | payer SELFPAY ==
--- NOTE | 2023-12-04 09:51 | MM_ITS ---
WS: [id number] BILATERAL 3D TOMOSYNTHESIS DIGITAL DIAGNOSTIC MAMMOGRAPHY WITH CAD CLINICAL INFORMATION: RT BR MASS HISTORY: Patient directed lump. COMPARISON: 2022 TECHNIQUE: Bilateral CC, MLO, and ML views. FINDINGS: Scattered fibroglandular densities bilaterally. Palpable markers RIGHT breast. Dense nodular parenchy mal tissue deep to the palpable markers. Ultrasound of this area is pending. A few incidental punctat e calcifications. LEFT breast is unremarkable and unchanged. ULTRASOUND BREAST RIGHT TECHNIQUE: Ultrasound right breast focused area of concern. CLINICAL INFORMATION: RT BR MASS FINDINGS: Ultrasound RIGHT breast in the areas of concern. Ultrasound performed at the 1:00 and 7:00 positions. Dense underlying parenchymal tissue. No cystic or solid lesions. No suspicious lesions to target for biopsy. Findings are benign. IMPRESSION: MM/[place] [id number] BI-RADS: 2-Benign FOLLOW UP: 1 Year Follow-up Recommend return to annual screening mammography.
== END 2023-12-04 09:46 | disposition home or self-care (01) ==
LOC: RAD 09:46
PROVIDERS: PCP Family Medicine; Visit Provider Family Medicine
DX: N63.15 Unspecified lump in the right breast, overlapping quadrants (principal)
CPT/HCPCS: 76642; 77062; G0279

== ENCOUNTER → 2023-12-31 09:03 | Outpatient (BNVA) | payer SELFPAY | PROVIDERS: PCP Family Medicine; Visit Provider Podiatrist Foot & Ankle Surgery | DX: M19.071 Primary osteoarthritis, right ankle and foot; G57.91 Unspecified mononeuropathy of right lower limb; M21.611 Bunion of right foot | CPT/HCPCS: 73630 ==

== ENCOUNTER → 2025-02-23 08:56 | Outpatient (BNVA) | payer MEDICARE, SELFPAY | PROVIDERS: PCP Family Medicine; Referring Provider Family Medicine; Visit Provider Podiatrist Foot & Ankle Surgery | DX: M79.89 Other specified soft tissue disorders (principal); M19.071 Primary osteoarthritis, right ankle and foot; G57.91 Unspecified mononeuropathy of right lower limb; M21.611 Bunion of right foot | CPT/HCPCS: 99214 ==

== ENCOUNTER 2025-07-02 08:13 | Outpatient (CLI) | payer MEDICARE, SELFPAY ==
--- NOTE | 2025-07-02 | ECG_ITS ---
[facility] Test Date: 2025-07-02 Pat Name: Ellie Knox Department: Room: Gender: Female Staff Field Engineer: : 1960 Requested By: Amanda Henao Order Number: [id number] Mendez MD: Thai Urena M.D. Interpretive Statements Procedure: The patient was exercised by the Oscar protocol. Findings:The patient's resting blood pressure was 152/93 with a heart rate of 87. The patient exercised for 4 minutes and 9 seconds on the Oscar protocol reaching a maximal heart rate of 154 bpm which was 99% of maximal predicted heart rate. The patient achieved 4.6 METS. there was no significant increase in blood pressure with exercise. The patient's blood pressure at the end of recovery was 139/82 with a heart rate of 123. The resting EKG showed normal sinus rhythm with possible old inferior and anterior infarctions. No arrhythmia or ST-T wave changes. CONCLUSION: 1. Exercise capacity was below average for age. 2. Heart rate response was appropriate. 3. Blood pressure response was appropriate. 4. No symptoms of angina during exercise. 5. Electrocardiogram portion of the stress test without evidence of ischemia or arrythmia. 6. Nuclear scan will be documented separately. Electronically Signed On 07-02-2025 13:01:32 CDT by Thai Urena M.D. [id number] [id number]
[2025-07-02 08:25] VITALS: BMI 32.9
--- NOTE | 2025-07-02 08:30 | NMCV_ITS ---
NM larry perf SPECT r/s* [id number] Ellie Knox Age: 65 Gender: F : 1960 Exam Date: 07/02/2025 09:21 Ordering Phys: Amanda Grayson MD Technologist: DARLIN Maher Exam [facility]: [facility] Indications: cp STRESS TEST Please see separate stress test report in [facility] for full findings IMAGE PROTOCOL Rest/Stress 1 Exercise Day Radiopharmaceutical Dose (mCi) Administration Site Administered by Rest: Tc-99m 10.4 IV Kourtney Hopkins, STORAGE BRINE WORKER Sestamibi Stress:Tc-99m 32.6 IV Kourtney Hopkins, STORAGE BRINE WORKER Sestamibi Rest: 02-Jul-2025 60 Discovery 630 Stress: 02-Jul-2025 30 Discovery 630 Radiopharmaceutical was injected at 94 % maximum heart rate. Images obtained in supine and prone position. SPECT RESULTS Technical Quality: Good Raw Data Analysis: Normal Image Corrections: No attenuation or motion correction applied Summed Stress Score: 0 Summed Rest Score: 5 Summed Difference Score: 0 PERFUSION FINDINGS SPECT images demonstrate homogeneous tracer distribution throughout the myocardium. FUNCTIONAL RESULTS (calculated via Gated SPECT) Stress Image LV EF (%): 75 Stress EDV (mL):63 TID: 0.95 Stress ESV (mL):16 FUNCTIONAL FINDINGS: There is normal left ventricular systolic function. IMPRESSIONS Myocardial perfusion imaging is normal. There is normal left ventricular systolic function. EF 75%. Thai Urena MD, FACC (Electronically Signed) Final Date: 02 July 2025 12:50 S
[2025-07-02 10:32] VITALS: BP 131/78; PULSE 78
== END 2025-07-02 08:14 | disposition home or self-care (01) ==
LOC: CDL 08:19
PROVIDERS: PCP Family Medicine; Visit Provider Family Medicine
DX: R06.02 Shortness of breath (principal); R07.9 Chest pain, unspecified
CPT/HCPCS: 36415; 78452; 93017; A9500

== ENCOUNTER → 2025-07-08 15:23 | Outpatient (BNVA) | payer MEDICARE, SELFPAY | PROVIDERS: PCP Family Medicine; Visit Provider Podiatrist Foot & Ankle Surgery | DX: M79.89 Other specified soft tissue disorders (principal); M19.071 Primary osteoarthritis, right ankle and foot; G57.91 Unspecified mononeuropathy of right lower limb; M21.611 Bunion of right foot | CPT/HCPCS: 73630; 99214 ==

== ENCOUNTER 2025-07-27 08:46 | Outpatient (CLI) | payer MEDICARE, SELFPAY ==
--- NOTE | 2025-07-27 08:45 | MR_ITS ---
WS: [id number] EXAMINATION: MR foot RT wo con* [id number] ORDER DATE: 07/27/2025 9:15 AM COMPARISON: None. HISTORY: soft tissue mass, right foot CONTRAST: None. TECHNIQUE: Sagittal T1, sagittal STIR, coronal PD, coronal T2, axial T1, axial T2, and axial PD imaging with fat saturation technique. FINDINGS: In the area of palpable concern, there is a lobulated fluid density cyst most compatible with ganglion cyst measuring approximately 2.6 x 2.1 x 9.6 cm AP by transverse by craniocaudal. Small lobulated neck which extends down into the intertarsal space between the first and second metatarsal bases. Normal underlying bone marrow signal. Cyst is lobulated and septated. Pes planus. Plantar calcaneal spurring. Osteopenia. Hallux valgus. MR/MR foot RT wo con* [id number] IMPRESSION: Lobulated and septated cystic lesion most likely ganglion cyst described above in the area of palpable concern. Contrast not administered.
== END 2025-07-27 08:47 | disposition home or self-care (01) ==
PROVIDERS: PCP Family Medicine; Visit Provider Podiatrist Foot & Ankle Surgery
DX: M79.89 Other specified soft tissue disorders (principal)
CPT/HCPCS: 73718

== ENCOUNTER → 2025-08-16 13:30 | Outpatient (BNVA) | payer MEDICARE, SELFPAY | PROVIDERS: PCP Family Medicine; Visit Provider Podiatrist Foot & Ankle Surgery | DX: Z01.818 Encounter for other preprocedural examination (principal); M79.89 Other specified soft tissue disorders; M19.071 Primary osteoarthritis, right ankle and foot; G57.91 Unspecified mononeuropathy of right lower limb; M21.611 Bunion of right foot | CPT/HCPCS: 99214 ==

== ENCOUNTER 2025-09-13 05:55 | Day surgery (SDC) | payer MEDICARE, SELFPAY ==
[2025-09-13] VITALS (11 sets, daily range): BP systolic 117–144; BP diastolic 75–98; PULSE 82–100; RESP 16–30; TEMP 36.2–36.6; O2SAT 92–100; BMI 32.9
--- NOTE | 2025-09-13 06:37 | ANES.PREANE2 ---
Pre-Anesthetic Assessment Height/Weight: Height 1.57 m Weight 81.647 kg Temp Pulse Resp BP Pulse Ox O2 Del Method 97.4 F L 82 18 140/95 99 Room Air 09/13/25 06:10 09/13/25 06:10 09/13/25 06:10 09/13/25 06:10 09/13/25 06:10 09/13/25 06:10 Preop Diagnosis: Right foot soft tissue mass Operation Date: 09/13/25 07:00 Proposed Procedures p Soft tissue mass excision right foot(Right) - Grzegorz Spence DPM s Neurolysis right foot dorsal cutaneous nerve(Right) - Grzegorz Spence DPM Familial anesthetic complications: None Was Beta Astrid taken within 24 hours: N/A Was Clonidine taken within 24 hours: N/A Last intake: Intake Last Liquid Date 09/12/25 Last Liquid Time 18:30 Last Solid Date 09/12/25 Last Solid Time 18:30 Social No alcohol and No tobacco Exam alert, oriented x 3, clear to auscultation bilaterally and regular rate & rhythm Airway Dentition: full CV/HEM Hypertension Anesthetic Plan ASA status: 2 Anesthesia: General Risk of > 500 ml blood loss (7ml/kg in children): No Medications/Allergies Home Medications ?Medication ?Instructions ?Recorded ?Confirmed ?Last Taken ?Type losartan 50 mg-hydrochlorothiazide 1 tab PO DAILY 09/07/25 09/07/25 09/12/25 07:00 History 12.5 mg tablet Allergies Allergy/AdvReac Type Severity Reaction Status Date / Time prochlorperazine (From Allergy Unknown Verified 08/16/25 13:50 Compazine) Current Medications Generic Name Dose Route Start Last Admin Trade Name Freq PRN Reason Stop Dose Admin Sodium Chloride 1,000 mls @ 30 mls/hr 09/13/25 06:00 09/13/25 06:16 Sodium Chloride 0.9% IV 09/14/25 05:59 30 mls/hr .Q24H JACK Administration PFSH Anesthesia Medical History Hyperlipidemia Hypertension Surgical History S/P bunionectomy Family History Father CAD (coronary artery disease) Brother CAD (coronary artery disease) Mother Stroke Social History Smoking and tobacco/nicotine status: never used tobacco/nicotine Alcohol intake: never Substance/Drug Use: never Household members: spouse Marital status: Current occupational status: employed Data Anesthesia Cardiac Studies: Sestamibi Stress Test (Cardiology) 07/02/25
--- NOTE | 2025-09-13 06:48 | P.HPUD_ITS ---
Surgery/Procedure H&P Update DATE OF PROCEDURE: September 13, 2025 DATE H&P PERFORMED: 08/16/25 H&P UPDATE INFORMATION: I have reviewed H&P completed within last 30 days, I have examined patient prior to procedure, No changes to prior documentation, H&P is in [facility] EMR on date indicated and Risks and benefits of the procedure reviewed PREOP DIAGNOSIS: Right foot soft tissue mass PLANNED PROCEDURE: Operation Date: 09/13/25 07:00 Proposed Procedures p Soft tissue mass excision right foot(Right) - Grzegorz Spence DPM s Neurolysis right foot dorsal cutaneous nerve(Right) - Grzegorz Spence DPM
[2025-09-13] MEDS: ceFAZolin 2,000 mg SDV 2000 MG IVP (07:02)
[2025-09-13] MEDS: BUPivacaine 0.5% INJ 30 mL INJECTION (07:28)
--- NOTE | 2025-09-13 07:58 | W.PM.BPON ---
Date of procedure: 09/13/2025 Surgeon name: Jacky PerezPMiguel Disk Sharpener(s) name(s): Imelda Procedure(s) performed: Soft tissue mass removal right foot, neurolysis dorsal cutaneous nerve Description of findings: Ganglion cyst of first intermetatarsal space enveloping dorsal cutaneous nerve. Dissection was carried out to remove mass from neurovascular bundle. Estimated blood loss: 5 cc Tourniquet time: 27 minutes Specimen(s) removed: Soft tissue mass right foot Post-operative diagnosis: Ganglion cyst right foot, dorsal cutaneous nerve entrapment
--- NOTE | 2025-09-13 07:59 | P.OP_ITS ---
Operative Report Date of procedure: September 13, 2025 Surgeon: Grzegorz Spence DPM Procedure: Date of procedure: 09/13/2025 Pre-op diagnosis: Soft tissue mass right foot Post-op diagnosis: Ganglion cyst right foot Post-op findings: Ganglion cyst right foot enveloping dorsal cutaneous nerve. Procedure done: 1. Soft tissue mass removal right foot CPT 69957 2. Neurolysis right foot dorsal cutaneous nerve CPT 83749 Implants: None Specimens removed: Soft tissue mass right foot Surgeon: Dr. Grzegorz Spence DPM Relocation Associate: Imelda Estimated blood loss: 5 cc Tourniquet time: 27 minutes Complications: None Patient is a 65-year-old female that has a history of right foot pain due to soft tissue mass confirmed with MRI. The patient has had the aforementioned chief complaint for some time. Conservative treatment measures have been attempted and the patient has opted for surgical intervention at this time. A lengthy discussion regarding the procedure, including risks and complications has been had with the patient and is noted in the recent clinic note. Written and verbal consent have been obtained. All patient questions have been answered to the patient?s satisfaction. No written or verbal guarantees have been given or implied. The patient has been NPO since midnight. The history has been reviewed and the history and physical is current. The signed consent was confirmed and placed in the patient chart. Patient imaging has been reviewed and is consistent with the diagnosis. Under mild sedation, the patient was brought into the operating room and placed on the table in the supine position. IV antibiotics were given by the anesthesia team as preoperative surgical prophylaxis. General sedation was then performed by the anesthesiateam. A local field block was performed using 0.5% Marcaine plain A pneumatic tourniquet was then placed about the right ankle. The operative extremity was then prepped and draped in the usual fashion. The extremity was then elevated and exsanguinated before the tourniquet was inflated to 250 mmHg. After inflation, the following procedure was then performed. Attention was directed to the right foot where a palpable soft tissue mass overlying the first intermetatarsal space was noted. A 5 cm incision was made using a #15 blade overlying the soft tissue mass. Dissection was carried down through subcutaneous the superficial fascia. Care was taken to identify the neurovascular bundle which ran directly parallel to the soft tissue mass. The soft tissue mass had the appearance of a ganglion. It was a gelatinous like fluid-filled sac in the first intermetatarsal space appearing to be coming from the second tarsometatarsal joint. Dissection was carried out circumferentially around the soft tissue mass to remove it from the operative field. It was sent as specimen. Electrocautery was used at the stem of the mass at the second tarsometatarsal articulation. The neurovascular bundle was closely associated with the soft tissue mass. The dorsal cutaneous nerve associated with the DP artery was mobilized from soft tissue adhesions. No injury to the nerve or artery was noted. The site was irrigated with copious amounts sterile saline before attention was directed to closure. Deep tissues closed with 3-0 Vicryl followed by subcuticular closure with 4-0 Vicryl and skin closure with 4-0 nylon in running interlocking fashion. Incision was dressed with Xeroform, 4 x 4 gauze, Kerlix, Richi bandage. The patient tolerated the procedure and anesthesia well and without complication. The patient was transported from the operating room to the recovery room with vital signs stable and vascular status intact to all digits of the right foot. The patient was given both written and verbal instructions to remain weightbearing as tolerated to the operative extremity, to keep dressings/splint clean, dry and intact and to take pain medication as directed. The patient will follow-up in the outpatient setting at their scheduled appointment. The patient was discharged with my personal number and was instructed to call if any questions or issues should arise. They were discharged home once anesthesia criteria was met.
--- NOTE | 2025-09-13 09:30 | ANE.PACU2 ---
Inpatient post-anesthesia follow up: Airway intact: Yes Vital signs: Temperature 97.1 F Pulse Rate 84 Respiratory Rate 16 Blood Pressure 141/98 Pulse Oximetry 92 Oxygen Delivery Me thod Room Air Oxygen Flow Rate Fraction of Inspir ed Oxygen Hydration adequate: Yes Nausea and vomiting: No Pain level: 1 Mental status: Baseline
== END 2025-09-13 09:32 | disposition home or self-care (01) ==
PROVIDERS: PCP Family Medicine; Visit Provider Podiatrist Foot & Ankle Surgery
PROC: (CPT 28041; principal; 2025-09-13 07:00)
PROC: (CPT 28041; 2025-09-13 07:00)
DX: M67.471 Ganglion, right ankle and foot (principal); I10 Essential (primary) hypertension; E78.5 Hyperlipidemia, unspecified
CPT/HCPCS: 28041; 64704; 88307; J0690; J2250; J2704; J3010; J3490; J7030; J9999